=== PATIENT | female | born 1980 | race Caucasian/White ===

== ENCOUNTER → 2016-06-06 | Outpatient (REF) | payer BC | LOC: M SFHCWAGY 13:39 | PROVIDERS: ATTEND Nurse Practitioner Women's Health | DX: Z12.4 Encounter for screening for malignant neoplasm of cervix (principal) ==

== ENCOUNTER → 2016-06-13 | Outpatient (REF) | payer BC | LOC: M SFHCLERA 09:36 | PROVIDERS: ATTEND Physician Assistant | DX: J02.9 Acute pharyngitis, unspecified (principal) ==

== ENCOUNTER → 2016-10-10 | Outpatient (CLI) | payer BC ==
--- NOTE | 2016-10-10 10:59 | ECGEPIP ---
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
[2016-10-10 11:14] LABS: MEAN CORPUSCULAR HGB CONC 33.2 g/dl (32.0-36.5); MEAN CORPUSCULAR VOLUME 90.2 fl (80.0-96.0); WHITE BLOOD COUNT 8.4 K/mm3 (4.0-10.0)
[2016-10-10 12:06] LABS: ALBUMIN/GLOBULIN RATIO 1.18 (1.00-1.93); ALKALINE PHOSPHATASE 73 U/L (45-117); ALT/SGPT 16 U/L (12-78); ANION GAP 6 MEQ/L (8-16); AST/SGOT 13 U/L (15-37); BILIRUBIN,TOTAL 0.6 MG/DL (0.2-1.0); BLOOD UREA NITROGEN 9 MG/DL (7-18); CALCIUM LEVEL 8.9 MG/DL (8.5-10.1); CARBON DIOXIDE LEVEL 29 MEQ/L (21-32); CHLORIDE LEVEL 104 MEQ/L (98-107); CHOLESTEROL LEVEL 228 MG/DL (<200); CREATININE FOR GFR 0.78 MG/DL (0.55-1.02); GLOMERULAR FILTRATION RATE > 60.0 (>60); GLUCOSE, FASTING 100 MG/DL (70-105); SODIUM LEVEL 139 MEQ/L (136-145); TOTAL PROTEIN 7.4 GM/DL (6.4-8.2); TRIGLYCERIDES LEVEL 147 MG/DL (<150)
--- NOTE | 2016-10-10 12:08 | REP ---
Clinical: Hypertension . Comparison: None . Technique: PA and lateral. Findings: The mediastinum and cardiac silhouette are normal. The lung chavez are clear and without acute consolidation, effusion, or pneumothorax. The skeletal structures are intact and normal. Impression: 1. No acute cardiopulmonary process. Signed by Lb Rider MD 10/10/2016 11:59 A
== END ==
LOC: M LAB 10:36
PROVIDERS: ATTEND Family Medicine
DX: I10 Essential (primary) hypertension (principal); E03.9 Hypothyroidism, unspecified

== ENCOUNTER → 2017-01-22 | Outpatient (CLI) | payer BC ==
--- NOTE | 2017-01-22 17:27 | REP ---
LUMBAR SPINE, FIVE VIEWS: HISTORY: Back pain. There is no acute fracture or subluxation. The intervertebral discs are normal in height. The facet joints are normal in appearance. IMPRESSION: There is no acute fracture or subluxation. Signed by Marcelo Mccracken MD 01/22/2017 06:06 P
== END ==
LOC: M WUC 16:41
PROVIDERS: ATTEND Physician Assistant
DX: M54.5 Low back pain (principal)

== ENCOUNTER → 2017-05-07 | Outpatient (CLI) | payer BC | LOC: M RAD 12:33 | DX: M23.001 Cystic meniscus, unspecified lateral meniscus, left knee (principal) | CPT/HCPCS: 73721 ==

== ENCOUNTER → 2017-06-09 | Outpatient (REF) | payer BC | LOC: M SFHCWAGY 14:57 | DX: Z12.4 Encounter for screening for malignant neoplasm of cervix (principal) | CPT/HCPCS: G0123 ==

== ENCOUNTER → 2017-07-17 | Outpatient (CLI) | payer BC ==
[2017-07-17 09:48] LABS: HEMATOCRIT 39.6 % (36.0-47.0); MEAN CORPUSCULAR HEMOGLOBIN 29.3 pg (27.0-33.0); MEAN CORPUSCULAR HGB CONC 32.8 g/dl (32.0-36.5); MEAN CORPUSCULAR VOLUME 89.4 fl (80.0-96.0); PLATELET COUNT, AUTOMATED 320 10^3/uL (150-450); RED BLOOD COUNT 4.43 10^6/uL (4.00-5.40); RED CELL DISTRIBUTION WIDTH 12.3 % (11.5-14.5); WHITE BLOOD COUNT 9.1 10^3/uL (4.0-10.0)
[2017-07-17 09:58] LABS: INR 0.87; PROTHROMBIN TIME 11.9 SECONDS (12.4-14.5)
[2017-07-17 10:17] LABS: ESTIMATED AVERAGE GLUCOSE 108 MG/DL (60-110); HEMOGLOBIN A1c 5.4 %
[2017-07-17 10:24] LABS: ALBUMIN 4.3 GM/DL (3.2-5.2); ALBUMIN/GLOBULIN RATIO 1.23 (1.00-1.93); ALKALINE PHOSPHATASE 78 U/L (45-117); ALT/SGPT 15 U/L (12-78); ANION GAP 5 MEQ/L (8-16); AST/SGOT 14 U/L (7-37); BILIRUBIN,TOTAL 0.4 MG/DL (0.2-1.0); BLOOD UREA NITROGEN 9 MG/DL (7-18); CALCIUM LEVEL 9.2 MG/DL (8.5-10.1); CARBON DIOXIDE LEVEL 30 MEQ/L (21-32); CHLORIDE LEVEL 107 MEQ/L (98-107); CHOLESTEROL LEVEL 206 MG/DL (<200); CHOLESTEROL RISK RATIO 3.814 (<5); CREATININE FOR GFR 0.79 MG/DL (0.55-1.30); GLOMERULAR FILTRATION RATE > 60.0 (>60); GLUCOSE, FASTING 103 MG/DL (70-100); HDL CHOLESTEROL 54 MG/DL (>40); LDL CHOLESTEROL 138.6 MG/DL (<100); NON-HDL-C 152 MG/DL; POTASSIUM SERUM 4.1 MEQ/L (3.5-5.1); SODIUM LEVEL 142 MEQ/L (136-145); THYROID STIMULATING HORMONE 0.751 uIU/ML (0.358-3.740); TOTAL PROTEIN 7.8 GM/DL (6.4-8.2); TRIGLYCERIDES LEVEL 67 MG/DL (<150)
== END ==
LOC: M LAB 09:22
DX: Z01.818 Encounter for other preprocedural examination (principal); R53.83 Other fatigue; E03.9 Hypothyroidism, unspecified
CPT/HCPCS: 71046

== ENCOUNTER → 2017-08-13 | Outpatient (REF) | payer BC ==
[2017-08-14 12:59] LABS: CHLAMYDIA DNA AMPLIFICATION NEGATIVE (NEGATIVE); GC DNA AMPLIFICATION NEGATIVE (NEGATIVE)
== END ==
LOC: M SFHCLERA 20:05
DX: N30.01 Acute cystitis with hematuria (principal)
CPT/HCPCS: 87591

== ENCOUNTER → 2017-09-09 | Outpatient (REF) | payer BC | LOC: M SFHCLERA 19:11 | DX: J02.9 Acute pharyngitis, unspecified (principal) ==

== ENCOUNTER → 2017-12-17 | Outpatient (CLI) | payer BC ==
[2017-12-18 11:14] LABS: BASO # 0.1 10^3/uL (0.0-0.2); BASO % 0.3 % (0.0-1.0); EOS # 0.1 10^3/uL (0.0-0.50); EOS % 0.5 % (0.0-3.0); HEMATOCRIT 43.4 % (36.0-47.0); HEMOGLOBIN 13.3 g/dl (12.0-15.5); IMMATURE GRANULOCYTE % 0.4 % (0-3.0); LYMPH # 2.5 10^3/uL (1.5-4.5); LYMPH % 15.9 % (24.0-44.0); MEAN CORPUSCULAR HEMOGLOBIN 30.5 pg (27.0-33.0); MEAN CORPUSCULAR HGB CONC 30.6 g/dl (32.0-36.5); MEAN CORPUSCULAR VOLUME 99.5 fl (80.0-96.0); MONO % 6.5 % (0.0-5.0); NEUTROPHILS % 76.4 % (36.0-66.0); PLATELET COUNT, AUTOMATED 299 10^3/uL (150-450); RED BLOOD COUNT 4.36 10^6/uL (4.00-5.40); RED CELL DISTRIBUTION WIDTH 12.9 % (11.5-14.5); WHITE BLOOD COUNT 15.7 10^3/uL (4.0-10.0)
[2017-12-18 11:31] LABS: ESTIMATED AVERAGE GLUCOSE 105 MG/DL (60-110); HEMOGLOBIN A1c 5.3 %
[2017-12-18 13:37] LABS: CHLAMYDIA DNA AMPLIFICATION NEGATIVE (NEGATIVE); GC DNA AMPLIFICATION NEGATIVE (NEGATIVE)
[2017-12-19 12:25] LABS: HBsAg Prenatal NEGATIVE (NEGATIVE); HIV 1&2 SCREEN CENTAUR NEGATIVE (NEGATIVE); RUBELLA IgG QUALITATIVE IMMUNE (IMMUNE)
[2017-12-19 12:25] LABS: HEPATITIS C VIRUS ABY INDEX 0.1 INDEX (<0.8)
== END ==
LOC: M SMT 14:13
DX: Z36.89 Encounter for other specified antenatal screening (principal)
CPT/HCPCS: 83036

== ENCOUNTER → 2018-01-15 | Outpatient (REF) | payer BC | LOC: M LAB REF 13:02 | DX: O09.521 Supervision of elderly multigravida, first trimester (principal) | CPT/HCPCS: 87086 ==

== ENCOUNTER → 2018-03-09 | Outpatient (CLI) | payer BC | LOC: M RAD 10:56 | DX: O24.312 Unspecified pre-existing diabetes mellitus in pregnancy, second trimester (principal); Z3A.18 18 weeks gestation of pregnancy | CPT/HCPCS: 76811 ==

== ENCOUNTER → 2018-04-10 | Outpatient (CLI) | payer BC ==
--- NOTE | 2018-04-10 16:05 | REP ---
REASON: anatomy. Multiple ultrasonographic images of the gravid uterus show a single living intrauterine gestation in the transverse head to maternal left position. Doppler interrogation of the heart shows a heart rate of 150 beats per minute. The placenta is posterior and not low lying. The subjective amniotic fluid volume is within normal limits. The cervix measures 5 cm in length and is closed. Evaluation of the maternal adnexal spaces showed no abnormalities. BPD 5.9 cm 24 weeks 1 day HC 22.3 cm 24 weeks 2 days AC 22.0 cm 26 weeks 3 days FL 4.7 cm 25 weeks 5 days. The estimated weight is 857 grams which is at the 97th percentile for 23 weeks 2 day gestational age. Structures visualized as unremarkable are as follows: facial features and four chamber heart. Note is made of bilateral moderate hydronephrosis. All other anatomical features were seen on a prior exam as unremarkable. IMPRESSION:Single living intrauterine gestation as described above with an estimated gestational age of 25 weeks 2 days via composite criteria and an estimated date of delivery of 07/22/2018 by today's exam. There is evidence of moderate bilateral hydronephrosis with the left renal pelvis measuring 1.1 cm and the right renal pelvis measuring 1 cm. Followup is recommended. Electronically Signed by Jaun Gallo DO 04/10/2018 04:56 P
== END ==
LOC: M RAD 10:27
PROVIDERS: ATTEND Specialist
DX: O09.522 Supervision of elderly multigravida, second trimester (principal); Z3A.25 25 weeks gestation of pregnancy

== ENCOUNTER → 2018-05-04 | Outpatient (CLI) | payer BC ==
[2018-05-04 19:06] LABS: BASO % 0.2 % (0.0-1.0); EOS # 0.1 10^3/uL (0.0-0.50); EOS % 0.5 % (0.0-3.0); HEMATOCRIT 36.5 % (36.0-47.0); HEMOGLOBIN 11.9 g/dl (12.0-15.5); LYMPH # 2.5 10^3/uL (1.5-4.5); LYMPH % 14.2 % (24.0-44.0); MEAN CORPUSCULAR HEMOGLOBIN 29.6 pg (27.0-33.0); MEAN CORPUSCULAR HGB CONC 32.6 g/dl (32.0-36.5); MEAN CORPUSCULAR VOLUME 90.8 fl (80.0-96.0); MONO # 1.1 10^3/uL (0.0-0.8); MONO % 6.2 % (0.0-5.0); NEUTROPHILS # 13.5 10^3/uL (1.8-7.7); NEUTROPHILS % 77.4 % (36.0-66.0); PLATELET COUNT, AUTOMATED 258 10^3/uL (150-450); RED BLOOD COUNT 4.02 10^6/uL (4.00-5.40); WHITE BLOOD COUNT 17.5 10^3/uL (4.0-10.0)
== END ==
LOC: M SMT 13:55
PROVIDERS: ATTEND Specialist
DX: O09.522 Supervision of elderly multigravida, second trimester (principal)

== ENCOUNTER → 2018-06-03 | Outpatient (CLI) | payer BC ==
--- NOTE | 2018-06-03 10:44 | REP ---
Clinical: Follow up hydronephrosis. Comparison: 04/10/2018 . Findings: Examination demonstrates a single live intrauterine in cephalic presentation. motion is identified by technologist. Placenta is noted posteriorly and grade 1 without evidence for placenta previa or abruption. Amniotic fluid volume is normal. Cervix measures 4.1 cm in length and appears closed. No evidence for nuchal cord. Gestational age by LMP 31 weeks 0 day with WAYNE 08/05/2018 . Gestational age by current measurements 32 weeks 0 days with WAYNE 07/29/2018 . FHR equals 136 beats per minute. Estimated weight 1961 grams ( 73rd percentile). Amniotic fluid index: 10.8 cm (8.8 - 23.8) Umbilical cord SD ratio: 2.85 Moderate bilateral hydronephrosis is again noted with renal pelvises measuring approximately 11 mm each. The bladder is unremarkable. Impression: Continued evidence for bilateral hydronephrosis. Electronically Signed by Lb Rider MD 06/03/2018 10:36 A
== END ==
LOC: M SMT 09:29
PROVIDERS: ATTEND Advanced Practice Midwife
DX: Z34.83 Encounter for supervision of other normal pregnancy, third trimester (principal)

== ENCOUNTER → 2018-07-02 | Outpatient (REF) | payer BC | LOC: M LAB REF 16:49 | PROVIDERS: ATTEND Advanced Practice Midwife | DX: O09.523 Supervision of elderly multigravida, third trimester (principal) ==

== ENCOUNTER → 2018-07-10 | Outpatient (CLI) | payer BC | LOC: M SMT 10:25 | PROVIDERS: ATTEND Advanced Practice Midwife | DX: O09.523 Supervision of elderly multigravida, third trimester (principal); Z3A.00 Weeks of gestation of pregnancy not specified ==

== ENCOUNTER 2018-07-25 10:52 | Inpatient (IN) | payer BC ==
[2018-07-25] VITALS (9 sets, daily range): BP systolic 106–122; BP diastolic 56–71
[~2018-07-25] VITALS: Ht 157.5 cm; Wt 118.7 kg
[2018-07-25] MEDS ORDERED: PENICILLIN G POTASSIUM IV 5 MU in D5W MINI-BAG PLUS 100 ML IV STA (11:56)
[2018-07-25] MEDS ORDERED: LACTATED RINGER'S 1000 ML IV STA (11:56)
[2018-07-25] MEDS ORDERED: miSOPROStol 50 MCG 1/2 TAB (S0191) As Ordered ONE (11:59)
[2018-07-25] MEDS: miSOPROStol 50 MCG 1/2 TAB (S0191) SL SCH ×3 (12:07→20:52)
--- NOTE | 2018-07-25 12:15 | NUR ---
L&D H&P HPI: 38 year old at 39+2 weeks estimated gestation. Expected date of confinement: 07/30/18. dated by LMP, c/w first TM US. Presents today for elective IOL. Denies vaginal bleeding, loss of fluid, or uterine contractions. Reports regular movement. course c/b: 1. AMA 2. Bilateral hydronephrosis labs: Blood type O+, antibody screen negative, rubella immune, VDRL nonreactive , hepatitis B surface antigen negative, HIV negative, hepatitis C antibody negative, GC/CT negative, aneuploidy/maternal serum screening: not done, 1 hour glucose challenge test: 115, GBS positive Vaccinations: Tdap 05/26/18 Flu vaccine 01/20/19 Radiology/OB US: no anomalies or placental abnormalities detected. 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 , 2007 SAB at 12 weeks. Social history: no t/e/d Family history: asthma Objective Vitals: Normotensive, normal heart rate, afebrile Heart: Regular rate and rhythm. No murmurs, rubs or gallops. Lungs: Clear to auscultation bilaterally. No wheezes, crackles, rales or rhonchi. Abdomen: Uterine fundal height consistent with dates. No guarding or rebound tenderness. Extremities: No clubbing, cyanosis or edema. Normal deep tendon reflexes. Sterile vaginal exam: 1 cm, 25 %effacement, -3 station, cephalic, intact External monitoring: heart rate category 1 Tocodynamometer: contractions occurring intermittent, rare Assessment/Plan 38 year old at 39+2 weeks gestation. Diagnosis: Full term gestation, elective IOL, AMA. Reassuring and maternal status. -Admit to labor and delivery with routine labs and orders -External monitoring and tocodynamometer -Pediatrics and anesthesia consultations as needed. -GBS prophylaxis with IV penicillin -Start with cervical ripening. Dr. Tyrese Hurd, DO, FACOG
[2018-07-25 12:29] LABS: HEMOGLOBIN 11.7 g/dl (12.0-15.5); MEAN CORPUSCULAR HEMOGLOBIN 29.9 pg (27.0-33.0); MEAN CORPUSCULAR HGB CONC 33.4 g/dl (32.0-36.5); MEAN CORPUSCULAR VOLUME 89.5 fl (80.0-96.0); PLATELET COUNT, AUTOMATED 225 10^3/uL (150-450); RED BLOOD COUNT 3.91 10^6/uL (4.00-5.40); WHITE BLOOD COUNT 13.7 10^3/uL (4.0-10.0)
[2018-07-25] MEDS: LR 1,000 ML IV SCH ×2 (13:21→20:52)
[2018-07-25] MEDS: PENICILLIN G POTASSIUM IV 2.5 MU in APPROPRIATE DILUENT 1 EA IV SCH ×2 (16:20→20:52)
--- NOTE | 2018-07-25 20:08 | NUR ---
Progress Note Pt not feeling uncomfortable with uterine cramping/contractions. No VB/LOF/uctx. +FM. VSS, normotensive, normal HR, afebrile SVE: /-3 EFM: Cat I [place]: ctxs intermittently A/P: Cervical ripening. Reassuring maternal and status. Ramon Hurd DO
[2018-07-26] VITALS (29 sets, daily range): BP systolic 94–132; BP diastolic 51–72
[2018-07-26] MEDS: miSOPROStol 50 MCG 1/2 TAB (S0191) SL SCH (00:31)
[2018-07-26] MEDS: PENICILLIN G POTASSIUM IV 2.5 MU in APPROPRIATE DILUENT 1 EA IV SCH ×6 (01:09→21:32)
[2018-07-26] MEDS: LR 1,000 ML IV SCH ×2 (09:07→13:26)
--- NOTE | 2018-07-26 09:41 | NUR ---
Progress Note Patient has received 4 doses of misoprostol for cervical ripening. Not feeling any discomfort with uterine cramping/contractions. No VB/LOF. VSS,normotensive, afebrile SVE: 50/-3, soft, mid-position Cook balloon inserted: 60ml/40ml EFM: Cat I [place]: intermittent, rare contractions A/P: Cervical ripening. Cook balloon successfully placed. Reassuring maternal and status. Ramon Hurd DO
[2018-07-26] MEDS ORDERED: OXYTOCIN DRIP 30 UNITS in APPROPRIATE DILUENT 1 EA IV SCH (10:00)
[2018-07-26] MEDS ORDERED: FENTANYL 2MCG/ML ROPIVACAINE 0.2% IN 0.9% NACL 100ML IVBAG As Ordered ONE (11:43)
[2018-07-26] MEDS ORDERED: NALOXONE INJ 0.4 MG/1 ML VIAL (J2310) IV PRN (13:00)
[2018-07-26] MEDS ORDERED: diphenhydrAMINE INJ 50MG/ML VIAL (J1200) IV PRN (13:00)
[2018-07-26] MEDS ORDERED: LACTATED RINGER'S 1000 ML IV PRN (13:00)
[2018-07-26] MEDS ORDERED: REFRIGERATOR IV KEYS XX PRN ×2 (13:00)
[2018-07-26] MEDS ORDERED: ePHEDrine SULFATE 25 MG/5 ML(5MG/ML) SYRINGE IV PRN (13:00)
[2018-07-26] MEDS ORDERED: EPIDURAL/PCA KEYS XX PRN (13:00)
[2018-07-26] MEDS ORDERED: ONDANSETRON 4MG/2ML VIAL (J2405) IV PRN (13:00)
[2018-07-26] MEDS: FENTANYL/ROPIVACAINE/NACL BAG 100 ML EPIDURAL SCH ×2 (13:28→19:57)
--- NOTE | 2018-07-26 18:33 | NUR ---
Progress Note Pt comfortable with epidural. +bloody show. No LOF. Normotensive, normal HR, afebrile SVE: 6cm/75%/-3 EFM: Cat I [place]: ctxs every 3-7min; pit at 12mU/min A/P: Approaching active phase of labor. Reassuring maternal and status. -Continue Pitocin per protocol. Ramon Hurd DO
--- NOTE | 2018-07-26 21:27 | NUR ---
Progress Note Comfortable with epidural; no complaints. More bloody show. VSS,normotensive, normal HR, afebrile SVE: 6cm/75%/-2; AROM clear fluid EFM: Cat I, BL 120, mod ajay, +accels, -decels. [place]: ctxs every 2-4 min; Pit at 12mU/min A/P: AROM, approaching active labor. Reassuring maternal and status. -Continue Brock Hurd, DO
[2018-07-27] VITALS (16 sets, daily range): BP systolic 99–124; BP diastolic 49–76
--- NOTE | 2018-07-27 00:36 | NUR ---
Progress Note Complaining of "pressure". No urge to push. VSS, normotensive, normal HR, afebrile SVE: 7cm/100%/-2 FSE/IUPC placed FHR: BL 120, mod ajay, +accels, intermittent/rare variable decelerations since AROM. IUPC: ctxs every 2-4 min; Pit at 6mU/min. Adequate MVU's: 200 A/P: Active labor. Minimal descent and cervical change. Reassuring maternal and status. -Continue Pitocin to maintain adequate MVU's. Ramon Hurd DO
[2018-07-27] MEDS: PENICILLIN G POTASSIUM IV 2.5 MU in APPROPRIATE DILUENT 1 EA IV SCH (01:15)
--- NOTE | 2018-07-27 02:39 | NUR ---
Progress Note VSS, normotensive, normal HR, afebrile SVE: 10cm/100%/0 FSE/IUPC placed FHR: Cat II. bl 110, mod variability. Variable and early decels with pushing. +accels. Overall reassuring. IUPC: ctxs every 2-4 min; Pit at 8mU/min. Adequate MVU's: 200 A/P: Second stage of labor reached at 0140. -Continue maternal pushing efforts. Ramon Hurd DO
[2018-07-27] MEDS: LR 1,000 ML IV SCH ×2 (04:34→08:31)
[2018-07-27] MEDS ORDERED: OXYTOCIN DRIP 30 UNITS in APPROPRIATE DILUENT 1 EA IV SCH (04:34)
--- NOTE | 2018-07-27 04:34 | NUR ---
Delivery note Spontaneous vaginal delivery Estimated gestational age at delivery: 39+4 weeks The active phase and second stage of labor progressed in normal fashion with epidural anesthesia. Patient received Pitocin labor augmentation. She received a full course of GBS prophylaxis. Pt had screened GBS+. The head delivered right occiput anterior and restituted right occiput transverse. A nuchal cord was noted. The anterior shoulder delivered with gentle downward guidance and the remainder of the body delivered with ease. The nuchal cord was reduced. Cord clamping was delayed for approximately 1 minute after delivery. After doubly clamping the cord, I allowed the FOB to cut the cord. The was placed on the patient's chest for immediate bonding. data: Apgars 8 and 9. weight 3320 grams 7 pounds, 5 ounces. Time of delivery: 040. Sex: Male. David. The third stage of labor was actively managed with a bolus of IV Pitocin (30 units in 500 mL of normal saline). The placenta delivered completely intact with no missing cotyledons at 0407. A three-vessel cord with a central insertion was noted. After delivery of the placenta, the uterine fundus was approximately 2 cm below the umbilicus and firm. IV Pitocin was continued to maintain uterine tone. A normal, low level of uterine bleeding was noted. The cervix, vagina, vulva and perineum were inspected for lacerations. A second degree laceration was noted. This was repaired with 3-0 Vicryl in typical fashion. Excellent hemostasis was noted. Estimated blood loss: 200ml. All sponges, needles, and instruments were accounted for per PROCESSING INSPECTOR department protocol. Tyrese Hurd D.O., F.A.Jazmine.Sanam.
[2018-07-27] MEDS ORDERED: DOCUSATE SODIUM 100 MG CAP PO PRN (04:45)
[2018-07-27] MEDS ORDERED: RHOGAM 300 MCG (1500 IU) INJ (J2790) IM SCH (04:45)
[2018-07-27] MEDS ORDERED: ONDANSETRON 4MG/2ML VIAL (J2405) IV PRN (04:45)
[2018-07-27] MEDS ORDERED: PROMETHAZINE 25 MG TAB PO PRN (04:45)
[2018-07-27] MEDS ORDERED: DIBUCAINE 1% OINTMENT 30GM TOP PRN (04:45)
[2018-07-27] MEDS ORDERED: IBUPROFEN 800 MG TAB PO PRN (04:45)
[2018-07-27] MEDS ORDERED: ACETAMINOPHEN 500 MG TAB PO PRN (04:45)
[2018-07-27] MEDS ORDERED: MEASLES,MUMPS,RUBELLA VACCINE INJ (MMR-II) (90707) SC SCH (04:45)
[2018-07-27] MEDS ORDERED: SLF 3 ML SYR IV PRN (08:45)
[2018-07-27] MEDS: PRENATAL VITAMINS CHEWABLE TABLET PO SCH (09:29)
[2018-07-27] MEDS: SLF 3 ML SYR IV SCH ×2 (13:41→22:00)
[2018-07-28 06:00] VITALS: BP 120/70
[2018-07-28] MEDS: SLF 3 ML SYR IV SCH ×2 (06:00→14:00)
[2018-07-28] MEDS: PRENATAL VITAMINS CHEWABLE TABLET PO SCH (08:48)
== END 2018-07-28 16:30 | disposition home or self-care (01) | DRG 560 ==
LOC: M LDI 10:52 → M OBS 07-27 08:01
PROVIDERS: ADMIT Obstetrics & Gynecology; ATTEND Obstetrics & Gynecology
PROC: 3E0DXGC Introduction of Other Therapeutic Substance into Mouth and Pharynx, External Approach (ICD-10-PCS; 2018-07-25)
PROC: 10E0XZZ Delivery of Products of Conception, External Approach (ICD-10-PCS; principal; 2018-07-27)
PROC: 0KQM0ZZ Repair Perineum Muscle, Open Approach (ICD-10-PCS; 2018-07-27)
DX: O69.82X0 Labor and delivery complicated by other cord entanglement, without compression, not applicable or unspecified (principal); Z37.0 Single live birth; Z3A.39 39 weeks gestation of pregnancy; O09.523 Supervision of elderly multigravida, third trimester; O99.820 Streptococcus B carrier state complicating pregnancy; O70.1 Second degree perineal laceration during delivery

== ENCOUNTER → 2018-10-16 | Outpatient (REF) | payer BC ==
[2018-10-21 14:07] LABS: HPV HYBRID CAPTURE II Negative (Negative)
== END ==
LOC: M LAB REF 16:14
PROVIDERS: ATTEND Obstetrics & Gynecology
DX: Z12.4 Encounter for screening for malignant neoplasm of cervix (principal)
CPT/HCPCS: 87624; G0123

== ENCOUNTER → 2019-01-04 | Outpatient (REF) | payer BC | LOC: M SFHCLERA 12:11 | PROVIDERS: ATTEND Nurse Practitioner Family | DX: K29.70 Gastritis, unspecified, without bleeding (principal) ==

== ENCOUNTER → 2019-01-06 | Outpatient (REF) | payer BC ==
[2019-01-07 14:20] LABS: CHLAMYDIA DNA AMPLIFICATION NEGATIVE (NEGATIVE); GC DNA AMPLIFICATION NEGATIVE (NEGATIVE)
== END ==
LOC: M SFHCLERA 20:28
PROVIDERS: ATTEND Nurse Practitioner Family
DX: R10.84 Generalized abdominal pain (principal); R19.7 Diarrhea, unspecified

== ENCOUNTER → 2019-01-07 | Outpatient (REF) | payer BC | LOC: M SFHCLUC 09:24 | PROVIDERS: ATTEND Nurse Practitioner Family | DX: R19.7 Diarrhea, unspecified (principal) ==

== ENCOUNTER → 2020-05-10 | Outpatient (CLI) | payer BC ==
[2020-05-10 18:37] LABS: FREE T4 0.83 NG/DL (0.76-1.46); THYROID STIMULATING HORMONE 1.54 uIU/ML (0.358-3.740)
== END ==
LOC: M LAB 17:20
PROVIDERS: ATTEND Orthopaedic Surgery
DX: G56.03 Carpal tunnel syndrome, bilateral upper limbs (principal)

== ENCOUNTER → 2020-06-16 | Outpatient (REF) | payer BC | LOC: M SFHCWAGY 19:23 | PROVIDERS: ATTEND Obstetrics & Gynecology | DX: Z12.4 Encounter for screening for malignant neoplasm of cervix (principal) ==

== ENCOUNTER → 2021-06-20 | Outpatient (CLI) | payer BC ==
[~2021-06-20] MED LIST: CITA20TA7 PO; MIRE1IUD IU; OMEP40CA5 PO
== END ==
LOC: M LABSMTC 09:13
PROVIDERS: ATTEND Anesthesiology
DX: Z01.818 Encounter for other preprocedural examination (principal); Z11.52 Encounter for screening for COVID-19

== ENCOUNTER → 2021-07-09 | Outpatient (CLI) | payer BC | LOC: M LABSMTC 09:11 | PROVIDERS: ATTEND Anesthesiology | DX: Z01.812 Encounter for preprocedural laboratory examination (principal); Z20.822 Contact with and (suspected) exposure to COVID-19 ==

== ENCOUNTER → 2022-01-31 | Outpatient (CLI) | payer BC ==
[2022-01-31 14:44] LABS: BASO % 0.4 % (0.0-1.0); EOS # 0.1 10^3/uL (0.0-0.5); EOS % 1.1 % (0.0-3.0); HEMOGLOBIN 12.9 g/dl (12.0-15.5); LYMPH # 2.5 10^3/uL (1.5-5.0); LYMPH % 24.6 % (24.0-44.0); MEAN CORPUSCULAR HEMOGLOBIN 28.4 pg (27.0-33.0); MEAN CORPUSCULAR HGB CONC 30.7 g/dl (32.0-36.5); MEAN CORPUSCULAR VOLUME 92.3 fl (80.0-96.0); MONO # 0.7 10^3/uL (0.0-0.8); MONO % 6.8 % (2.0-8.0); NEUTROPHILS # 6.7 10^3/uL (1.5-8.5); NEUTROPHILS % 66.6 % (36.0-66.0); PLATELET COUNT, AUTOMATED 315 10^3/uL (150-450); RED BLOOD COUNT 4.55 10^6/uL (4.00-5.40)
[2022-01-31 15:43] LABS: ERYTHROCYTE SEDIMENTATION RATE 9 mm/hr (0-20)
[2022-01-31 15:47] LABS: BLOOD UREA NITROGEN 11 MG/DL (7-18); C REACTIVE PROTEIN QUANTITATIV 1.35 MG/DL (0.00-0.30); CALCIUM LEVEL 9.3 MG/DL (8.5-10.1); CARBON DIOXIDE LEVEL 29 MEQ/L (21-32); CHLORIDE LEVEL 105 MEQ/L (98-107); CREATININE FOR GFR 0.79 MG/DL (0.55-1.30); FREE T4 0.84 NG/DL (0.76-1.46); GLOMERULAR FILTRATION RATE > 60.0 (>60); GLUCOSE, FASTING 110 MG/DL (70-100); POTASSIUM SERUM 4.4 MEQ/L (3.5-5.1); RHEUMATOID FACTOR QUANT < 10.0 IU/ML (<15.0); SODIUM LEVEL 138 MEQ/L (136-145)
[2022-02-01 14:10] LABS: ANTINUCLEAR ANTIBODIES DIRECT Negative (Negative)
== END ==
LOC: M PLALAB 09:20
PROVIDERS: ATTEND Orthopaedic Surgery
DX: M65.331 Trigger finger, right middle finger (principal)

== ENCOUNTER → 2022-10-02 | Outpatient (CLI) | payer BC | LOC: M WHC 08:04 | PROVIDERS: ATTEND Obstetrics & Gynecology | DX: Z12.31 Encounter for screening mammogram for malignant neoplasm of breast (principal); Z97.5 Presence of (intrauterine) contraceptive device ==

== ENCOUNTER → 2023-08-05 | Outpatient (CLI) | payer BC | LOC: M SLEEP HO 10:30 | PROVIDERS: ATTEND Nurse Practitioner Family | DX: G47.33 Obstructive sleep apnea (adult) (pediatric) (principal); R40.0 Somnolence ==

== ENCOUNTER → 2023-09-05 | Outpatient (CLI) | payer BC ==
[2023-09-05 07:41] LABS: BASO # 0.1 10^3/uL (0.0-0.2); BASO % 0.5 % (0.0-1.0); EOS # 0.1 10^3/uL (0.0-0.5); EOS % 1.1 % (0.0-3.0); HEMATOCRIT 37.4 % (36.0-47.0); HEMOGLOBIN 12.2 g/dl (12.0-15.5); LYMPH # 2.3 10^3/uL (1.5-5.0); LYMPH % 23.1 % (24.0-44.0); MEAN CORPUSCULAR HEMOGLOBIN 29.5 pg (27.0-33.0); MEAN CORPUSCULAR HGB CONC 32.6 g/dl (32.0-36.5); MEAN CORPUSCULAR VOLUME 90.3 fl (80.0-96.0); MONO # 0.8 10^3/uL (0.0-0.8); NEUTROPHILS # 6.7 10^3/uL (1.5-8.5); NEUTROPHILS % 66.9 % (36.0-66.0); PLATELET COUNT, AUTOMATED 262 10^3/uL (150-450); RED BLOOD COUNT 4.14 10^6/uL (4.00-5.40); WHITE BLOOD COUNT 9.9 10^3/uL (4.0-10.0)
[2023-09-05 08:08] LABS: LIPASE 31 U/L (12-53)
[2023-09-05 08:10] LABS: ALBUMIN 3.8 G/DL (3.2-5.2); ALKALINE PHOSPHATASE 90 U/L (46-116); ALT/SGPT 13 U/L (7.0-40); AST/SGOT 12 U/L (<34); BILIRUBIN,TOTAL 0.5 MG/DL (0.3-1.2); BLOOD UREA NITROGEN 9 MG/DL (9-23); CALCIUM LEVEL 8.8 MG/DL (8.5-10.1); CARBON DIOXIDE LEVEL 28 MMOL/L (20-31); CHLORIDE LEVEL 106 MMOL/L (98-107); CHOLESTEROL LEVEL 209 MG/DL (<200); CHOLESTEROL RISK RATIO 5.48 (<5); CREATININE FOR GFR 0.76 MG/DL (0.55-1.30); GLOMERULAR FILTRATION RATE > 60.0 (>58); GLUCOSE, FASTING 102 MG/DL (60-100); HDL CHOLESTEROL 38.1 MG/DL (>40); LDL CHOLESTEROL 124.5 MG/DL (<100); NON-HDL-C 170.9 MG/DL; POTASSIUM SERUM 4.1 MMOL/L (3.5-5.1); SODIUM LEVEL 140 MMOL/L (136-145); TOTAL PROTEIN 6.5 G/DL (5.7-8.2); TRIGLYCERIDES LEVEL 232 MG/DL (<150)
[2023-09-05 08:12] LABS: THYROID STIMULATING HORMONE 2.357 uIU/ML (0.55-4.78); TOTAL 25(OH) VITAMIN D 26.1 NG/ML (20.0-100.0)
[2023-09-05 08:32] LABS: HEMOGLOBIN A1c 5.3 % (4.0-6.0)
== END ==
LOC: M LAB 07:10
PROVIDERS: ATTEND Physician Assistant
DX: Z00.00 Encounter for general adult medical examination without abnormal findings (principal); R10.13 Epigastric pain